=== PATIENT | male | born 1955 | race Caucasian/White ===

== ENCOUNTER 2024-10-25 00:40 | Inpatient (IN) | payer OTHER ==
[~2024-10-25] VITALS: Ht 190.5 cm; Wt 107.9 kg
--- NOTE | 2024-10-25 00:56 | EKG ---
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
[2024-10-25 01:11] LABS: BASOPHILS # (AUTO) 0.05 K/uL (0.00-0.20); BASOPHILS % (AUTO) 0.7 % (0.0-5.0); EOSINOPHILS # (AUTO) 0.15 K/uL (0.00-0.70); EOSINOPHILS % (AUTO) 2.1 % (0.0-8.0); HEMATOCRIT 40.3 % (42-54); IMMATURE GRANULOCYTE ABSOLUTE 0.02 K/uL (0-1); LYMPHOCYTES # (AUTO) 2.5 K/uL (1.0-4.8); LYMPHOCYTES % (AUTO) 35.2 % (21.0-51.0); MEAN CORPUSCULAR HEMOGLOBIN 32.8 pg (27.0-33.0); MEAN CORPUSCULAR HGB CONC 35.2 g/dL (32.0-36.0); MEAN CORPUSCULAR VOLUME 93.1 fL (79-99); MONOCYTES # (AUTO) 0.7 K/uL (0.1-1.0); MONOCYTES % (AUTO) 9.9 % (3.0-13.0); NEUTROPHILS # (AUTO) 3.7 K/uL (1.8-7.7); NEUTROPHILS % (AUTO) 51.8 % (40.0-77.0); PLATELET COUNT (AUTO) 198 K/uL (130-400); RED BLOOD CELL COUNT(AUTO) 4.33 MIL/uL (4.50-6.20); RED CELL DISTRIBUTION WIDTH 13.2 % (11.0-15.5); WHITE BLOOD COUNT (AUTO) 7.1 K/uL (4.8-10.8)
[2024-10-25 01:23] LABS: CREATININE 1.7 mg/dL (0.5-1.3); POTASSIUM 3.9 mmol/L (3.5-5.1)
[2024-10-25 01:24] LABS: INR 0.98 (0.85-1.15)
[2024-10-25 01:25] LABS: PARTIAL THROMBOPLASTIN TIME 26.3 SEC (26.3-35.5)
[2024-10-25 01:25] LABS: APPEARANCE,URINE CLEAR (CLEAR); BILIRUBIN,URINE NEGATIVE (NEGATIVE); COLOR,URINE LIGHT-YELLOW (YELLOW); GLUCOSE, URINE (UA) NEGATIVE (NEGATIVE); KETONES,URINE NEGATIVE (NEGATIVE); LEUKOCYTE ESTERASE ,URINE NEGATIVE Leu/uL (NEGATIVE); NITRATE,URINE NEGATIVE (NEGATIVE); OCCULT BLOOD,URINE NEGATIVE (NEGATIVE); PH,URINE 6.5 (5.0-8.0); PROTEIN,URINE 20 mg/dL (NEGATIVE); UROBILINOGEN,URINE 0.2 mg/dL (0.2-1.0)
[2024-10-25 01:28] LABS: MAGNESIUM 1.8 mg/dL (1.80-2.40)
[2024-10-25 01:29] LABS: ADD UA MICROSCOPIC YES
[2024-10-25 01:30] LABS: SQUAMOUS EPITHELIAL CELL,UR RARE /HPF (0-2)
[2024-10-25 01:30] LABS: B-TYPE NATRIURETIC PEPTIDE 545 pg/mL (0-100)
--- NOTE | 2024-10-25 02:09 | ERN ---
General Chief Complaint: Other Problems Stated Complaint: IRREGULAR HEART BEAT Time Seen by MD: 00:41 Source: patient History of Present Illness Initial Comments Pt is a 69 y/o male coming in to be evaluated for an irregular heartbeat. Patient states he has a hx of afibb and is on several medications for this. He states that he noticed his heart rate in the low 50's and then it would race up into the low 100's. Allergies: Coded Allergies: No Known Allergies (Unverified Allergy, Unknown, 10/25/24) Past Medical History Past Medical History: A-Fib, Hypertension, Other Medical History Other: LEFT KIDNEY REMOVAL DUE TO CA Past Surgical History: Cholecystectomy, Other Surgical History Other: LEFT KIDNEY Results Laboratory and Microbiology Lab and Micro Result Laboratory Tests Test 10/25/24 01:03 10/25/24 01:15 White Blood Count 7.1 K/uL (4.8-10.8) Red Blood Count 4.33 MIL/uL (4.50-6.20) L Hemoglobin 14.2 g/dL (14.0-18.0) Hematocrit 40.3 % (42-54) L Mean Corpuscular Volume 93.1 fL (79-99) Mean Corpuscular Hemoglobin 32.8 pg (27.0-33.0) Mean Corpuscular Hemoglobin Concent 35.2 g/dL (32.0-36.0) Red Cell Distribution Width 13.2 % (11.0-15.5) Platelet Count 198 K/uL (130-400) Mean Platelet Volume 11.0 fL (7.5-10.5) H Immature Granulocyte % (Auto) 0.3 % (0-1) Neutrophils (%) (Auto) 51.8 % (40.0-77.0) Lymphocytes (%) (Auto) 35.2 % (21.0-51.0) Monocytes (%) (Auto) 9.9 % (3.0-13.0) Eosinophils (%) (Auto) 2.1 % (0.0-8.0) Basophils (%) (Auto) 0.7 % (0.0-5.0) Neutrophils # (Auto) 3.7 K/uL (1.8-7.7) Lymphocytes # (Auto) 2.5 K/uL (1.0-4.8) Monocytes # (Auto) 0.7 K/uL (0.1-1.0) Eosinophils # (Auto) 0.15 K/uL (0.00-0.70) Basophils # (Auto) 0.05 K/uL (0.00-0.20) Absolute Immature Granulocyte (auto 0.02 K/uL (0-1) Nucleated Red Blood Cells 0.0 % (0.0-0.19) Prothrombin Time 11.0 SEC (9.6-11.6) Prothromb Time International Ratio 0.98 (0.85-1.15) Activated Partial Thromboplast Time 26.3 SEC (26.3-35.5) Sodium Level 139 mmol/L (136-145) Potassium Level 3.9 mmol/L (3.5-5.1) Chloride Level 104 mmol/L (101-111) Carbon Dioxide Level 28 mmol/L (21-32) Blood Urea Nitrogen 34 mg/dL (7-18) H Creatinine 1.7 mg/dL (0.5-1.3) H Glomerular Filtration Rate Calc 43 mL/min (>90) Random Glucose 109 mg/dL (70-105) H Total Calcium 8.3 mg/dL (8.5-10.1) L Magnesium Level 1.80 mg/dL (1.80-2.40) Total Creatine Kinase 119 U/L (21-232) Troponin I High Sensitivity 8 ng/L (4-75) B-Type Natriuretic Peptide 545 pg/mL (0-100) H Urine Color LIGHT-YELLOW (YELLOW) Urine Appearance CLEAR (CLEAR) Urine pH 6.5 (5.0-8.0) Urine Specific Lulu 1.025 (1.001-1.031) Urine Protein 20 mg/dL (NEGATIVE) H Urine Glucose (UA) NEGATIVE mg/dL (NEGATIVE) Urine Ketones NEGATIVE mg/dL (NEGATIVE) Urine Occult Blood NEGATIVE (NEGATIVE) Urine Nitrate NEGATIVE (NEGATIVE) Urine Bilirubin NEGATIVE mg/dL (NEGATIVE) Urine Urobilinogen 0.2 mg/dL (0.2-1.0) Urine Leukocyte Esterase NEGATIVE Grecia/uL Urine RBC 2-5 /HPF (0-1) H Urine WBC 6-10 /HPF (0-1) H Urine Squamous Epithelial Cells RARE /HPF (0-2) Urine Bacteria None /HPF (None Seen) EKG/XRAY/US/CT/MRI EKG Comment 10/25/2024 time 12:52 a.m. Ventricular rate [address] wave elevation or depression MDM MDM: Differential diagnosis: Irregular heartbeat, history of AFib, bradycardia, Rationale: Tests considered and ordered secondary to shared decision making include: labs, ECG and radiology Previous outside records reviewed: Old ER visits. Risk of complication and/or morbidity or mortality of patient management: None Medications-Per medication reconciliation Need for hospitalization: Patient does meet criteria for hospitalization. Need for emergency major/minor surgery: No There are no social concerns with this patient. Prescription drug management Prescriptions will include symptomatic care Patient's prior external medical records from other ER visits were reviewed by me as indicated. Prior testing and results from previous visits were reviewed. Prior tests were taken into account with medical decision making and resource utilization, independent historian/historians were used to obtain complete medical history. I independently interpreted the test that were performed, results were reviewed by me and considered findings on radiology if ordered. Medical management and examination interpretation discussions were had by me with other qualified healthcare professionals as indicated for the patient's care. Patient is a 69-year-old gentleman coming in to be evaluated for irregular heartbeat. Patient states he has a history of AFib and states he checked his heartbeat today noticed it was low but shortly after that would bouts up into the low 100s. He became concerned because he was on a beta- ricardo for atrial fibrillation decided to come in for further evaluation. Patient will be admitted under the care of hospitalist group for ongoing evaluation and management. ED Course Orders Procedure Category Date Status Time 12 Lead Ekg Tracing- EKG 10/25/24 Complete Technical 00:43 Cbc With Differential LAB 10/25/24 Complete 00:51 Prothrombin Time With LAB 10/25/24 Complete INR 00:51 B-Type Natriuretic LAB 10/25/24 Complete Peptide 00:51 Chest 1vw RAD 10/25/24 Taken 00:51 Lactated Ringers PHA 10/25/24 Complete 1000ml (Lactated 01:00 Magnesium LAB 10/25/24 Complete 00:51 Creatine Kinase, Total LAB 10/25/24 Complete 00:51 Troponin I High LAB 10/25/24 Complete Sensitivity 00:51 Urinalysis Profile LAB 10/25/24 Complete 00:51 Partial LAB 10/25/24 Complete Thromboplastin Time 00:51 Basic Metabolic Panel LAB 10/25/24 Complete 00:51 Culture Urine ERAN 10/25/24 In Process 01:32 Current Medications Medications (Trade) Dose Ordered Sig/Lilly Route PRN Reason Start Time Stop Time Status Last Admin Dose Admin Lactated Ringer's 1,000 ml @ 0 mls/hr ONCE ONCE IV 10/25/24 01:00 10/25/24 01:01 DC 10/25/24 02:10 Vital Signs Date Time Temp Pulse Resp B/P (MAP) Pulse Ox O2 Delivery O2 Flow Rate FiO2 10/25/24 02:14 95 18 103/59 95 Room Air* 0 21 10/25/24 01:18 96 18 90/56 96 Room Air* 0 21 10/25/24 00:41 97.0 91 20 99/68 100 Room Air DX & DISP Disposition: Inpatient Decision to Admit Time: 02:41 Departure Impression: Primary Impression: Irregular heartbeat Additional Impression: History of atrial fibrillation Condition: Stable Referrals: SELF,REFERRAL (PCP) MAO GONZALES MD Oct 25, 2024 02:09
[2024-10-25] MEDS: LACTATED RINGERS 1000ML 1,000 ML IV ONE (02:10)
--- NOTE | 2024-10-25 02:55 | NUR ---
DOROTHY PELLET MILL OPERATOR AND FAMILY MEMBER AT BEDSIDE.
[2024-10-25] MEDS ORDERED: ondanSETRON 4MG INJ IV PRN (03:30)
--- NOTE | 2024-10-25 03:36 | HP ---
[facility] HISTORY AND PHYSICAL Date of Service: Oct 25, 2024 Time of Service: 03:09 PCP: Self-referral HISTORY OF PRESENT ILLNESS: This is a 69 year old male ,a winter [place] from [facility] with past medical history of atrial fibrillation,Kidney cancer,chronic back pain and insomnia who presents to the ED for complaints of irregular heart beat.Patient reports he was laying down in bed and watching TV and his routine is to check his pulse prior to going to bed and he noticed his heart is low in the 50's and then it would race up to the low 100's so he asked his Natalia to listen to his heart and it was irregular,and the last episode of afib he had was 2 years ago he said.Patient denies chest pain,shortness of breath,edema,fever,abdominal pain and dizziness. Natalia was at bedside during my evaluation.Patient states he does not have a die trimmer here.Patient also reports he drinks 3 beers /week and denies cigarette and recreational drug use. Patient states he is taking blood thinner [id number] 30mg po daily,Bisopolol 5 mg po daily and propafenone 300mg po bid. Patient states he is scheduled for a right hip surgery on December .Upon arrival to ER an ECG was done and showed Afib HR112.Latest V/S T97,HR92,BP 104/64 Sat 95% RA. Labs: CBC is unremarkable. BUN 34, creatinine 1.7, GFR 43 glucose 109 total calcium 8.3 troponin eight BNP 545. Chest x-ray result is still pending at this time. 1 L bolus. We will admit patient for further medical management. REVIEW OF SYSTEMS CONSTITUTIONAL: Denies fevers, chills, or night sweats. No unintentional weight loss reported. NEUROLOGICAL: Denies headache, amaurosis fugax, motor weakness, sensory deficit, vertigo/spinning sensation, gait abnormalities, or tremors. ENT: No hearing loss, otalgia, otorrhea, rhinitis, rhinorrhea, hoarseness, or sore throat. CARDIOVASCULAR: Denies any exertional angina, dyspnea on exertion, orthopnea, paroxysmal nocturnal dyspnea, palpitations, life-threatening arrhythmias, claudication. PULMONARY: Denies any shortness of breath, cough, phlegm/sputum, hemoptysis, pleuritic chest pain. SLEEP: Denies morning headaches, daytime somnolence or napping. Denies difficulty falling asleep, staying asleep, waking from sleep. Denies knowledge of snoring. GASTROINTESTINAL: Denies any type of dysphagia to either liquids or solids. Denies nausea, vomiting, pyrosis, early satiety, abdominal pain, diarrhea, constipation, or changes in stool consistency or caliber. Denies coffee-ground emesis, hematemesis, hematochezia, or melanotic stools. GENITOURINARY: Denies frequency, urgency, nocturia, hematuria or incontinence (Storage/Irritative symptoms.) Low urinary stream, straining to void, urinary intermittency or hesitancy, splitting of the voiding stream, terminal dribbling. ENDOCRINOLOGIC: Denies polyuria, polydipsia, polyphagia or heat/cold intolerances. HEMATOLOGIC: Denies thrombophilia/previous clots, or coagulopathy/bleeding disorders. ONCOLOGIC: Denies personal history of malignancy. DERMATOLOGIC: Denies rashes or pruritus. PSYCHIATRIC: Denies any suicidal or homicidal ideation. Denies hallucinations. PAST MEDICAL HISTORY: [ Kidney cancer, insomnia, chronic back pain atrial fibrillation ] PAST SURGICAL HISTORY: [ Left kidney removal cholecystectomy ] PAST SOCIAL HISTORY: [Patient lives with . Patient is a winter [place] from [facility]. Patient denies cigarette and recreational drug use admits to drinking three beers per week ] FAMILY HISTORY: [ Noncontributory ] Coded Allergies: No Known Allergies (Unverified Allergy, Unknown, 10/25/24) PHYSICAL EXAM GENERAL APPEARANCE: The patient is awake, alert, and oriented, in no acute cardiopulmonary distress. NEUROLOGICAL: Cranial nerves II-XII grossly intact. Motor is 5/5 in bilateral upper and lower extremities proximal to distal. No sensory deficits. HEENT: Face is symmetric. Pupils are equal and reactive. Extraocular movements are intact. NECK: Supple. No JVD. No thyromegaly. No submental, submandibular, pre- /postauricular, occipital or supraclavicular lymphadenopathy. CHEST: Normal chest expansion. No Telemetry. LUNGS: Absence of any rales, rhonchi or any wheezing. CARDIOVASCULAR: Irregular. S1 and S2 normal. No appreciable rubs, murmurs or gallops. ABDOMEN: Soft, nontender, and nondistended. There is no rebound, voluntary guarding, or rigidity. : Deferred. No Barriga. EXTREMITIES: Non-edematous and not cyanotic. No clubbing. Good capillary refill. SKIN: No skin breakdown. Vital Sign (Last 24 Hours) 10/25/24 10/25/24 00:41 03:01 Temp 97.0 Pulse 92 Resp 18 B/P (MAP) 104/64 Pulse Ox 95 O2 Delivery Room Air* O2 Flow Rate 0 FiO2 21 LABS: Laboratory: Test 10/25/24 01:15 10/25/24 01:03 Range/Units Urine Color LIGHT-YELLOW YELLOW Urine Appearance CLEAR CLEAR Urine pH 6.5 5.0-8.0 Urine Specific [place]amo 1.025 1.001-1.031 Urine Protein 20 H NEGATIVE mg/dL Urine Glucose (UA) NEGATIVE NEGATIVE mg/dL Urine Ketones NEGATIVE NEGATIVE mg/dL Urine Occult Blood NEGATIVE NEGATIVE Urine Nitrate NEGATIVE NEGATIVE Urine Bilirubin NEGATIVE NEGATIVE mg/dL Urine Urobilinogen 0.2 0.2-1.0 mg/dL Urine Leukocyte Esterase NEGATIVE NEGATIVE Grecia/uL Urine RBC 2-5 H 0-1 /HPF Urine WBC 6-10 H 0-1 /HPF Urine Squamous Epithelial Cells RARE 0-2 /HPF Urine Bacteria None None Seen /HPF White Blood Count 7.1 4.8-10.8 K/uL Red Blood Count 4.33 L 4.50-6.20 MIL/uL Hemoglobin 14.2 14.0-18.0 g/dL Hematocrit 40.3 L 42-54 % Mean Corpuscular Volume 93.1 79-99 fL Mean Corpuscular Hemoglobin 32.8 27.0-33.0 pg Mean Corpuscular Hemoglobin Concent 35.2 32.0-36.0 g/dL Red Cell Distribution Width 13.2 11.0-15.5 % Platelet Count 198 130-400 K/uL Mean Platelet Volume 11.0 H 7.5-10.5 fL Immature Granulocyte % (Auto) 0.3 0-1 % Neutrophils (%) (Auto) 51.8 40.0-77.0 % Lymphocytes (%) (Auto) 35.2 21.0-51.0 % Monocytes (%) (Auto) 9.9 3.0-13.0 % Eosinophils (%) (Auto) 2.1 0.0-8.0 % Basophils (%) (Auto) 0.7 0.0-5.0 % Neutrophils # (Auto) 3.7 1.8-7.7 K/uL Lymphocytes # (Auto) 2.5 1.0-4.8 K/uL Monocytes # (Auto) 0.7 0.1-1.0 K/uL Eosinophils # (Auto) 0.15 0.00-0.70 K/uL Basophils # (Auto) 0.05 0.00-0.20 K/uL Absolute Immature Granulocyte (auto 0.02 0-1 K/uL Nucleated Red Blood Cells 0.0 0.0-0.19 % Prothrombin Time 11.0 9.6-11.6 SEC Prothromb Time International Ratio 0.98 0.85-1.15 Activated Partial Thromboplast Time 26.3 26.3-35.5 SEC Sodium Level 139 136-145 mmol/L Potassium Level 3.9 3.5-5.1 mmol/L Chloride Level 104 101-111 mmol/L Carbon Dioxide Level 28 21-32 mmol/L Blood Urea Nitrogen 34 H 7-18 mg/dL Creatinine 1.7 H 0.5-1.3 mg/dL Glomerular Filtration Rate Calc 43 >90 mL/min Random Glucose 109 H 70-105 mg/dL Total Calcium 8.3 L 8.5-10.1 mg/dL Magnesium Level 1.80 1.80-2.40 mg/dL Total Creatine Kinase 119 21-232 U/L Troponin I High Sensitivity 8 4-75 ng/L B-Type Natriuretic Peptide 545 H 0-100 pg/mL DIAGNOSTICS / RADIOLOGY: [ ] ASSESSMENT: Paroxysmal atrial fibrillation POA Acute kidney injury POA Active alcohol drinker POA Insomnia POA History of chronic back pain POA History of atrial fibrillation POA History of kidney cancer with left kidney removal POA PLAN: We will admit patient to medical telemetry Start on heart healthy diet We will start on NS at 75 mL/hour and evaluate We will obtain echocardiogram We will start on famotidine 20 mg p.o. daily for GI prophylaxis We will reconcile home meds once med list available We will replace electrolytes as needed per protocol We will add p.r.n. medication for pain, fever, nausea and vomiting Counseled on alcohol use cessation We will check labs in a.m. We will seek Cardiology consultation Further recommendations to follow depending upon hospitalization course Case discussed with the attending MD and came up with the above treatment and plan of care ADVANCED CARE PLANNING 1. Which of the following were discussed? Hospice Care - No Therapeutic options - Yes Advance Directives - No Other discussions - 2. Discussed with who? Patient 3. Voluntary nature of this service was explained to the patient? Yes 4. Amount of time spent - ___19____ 5. Reviewed by Physician? (if this service was performed by NPP) Yes Patient seen and examined by me. Agree with note by SENIOR PHARMACY TECHNICIAN SEE ADDITIONAL ORDERS PER CHART DISCUSSED WITH NURSING STAFF KSENIA DE LA CRUZ HYDRAULIC CORRUGATING MACHINE OPERATOR Oct 25, 2024 03:36
[2024-10-25] MEDS ORDERED: [UNRECOGNIZED DRUG - CODE] PO (05:03)
[2024-10-25] MEDS ORDERED: ACET-2079 PO (05:07)
[2024-10-25] MEDS ORDERED: PREG75CA76 PO (05:11)
[2024-10-25] MEDS ORDERED: EDOX30TA2 PO (05:11)
[2024-10-25] MEDS ORDERED: BISO5TAB19 PO (05:11)
[2024-10-25] MEDS ORDERED: ZOPICLONE PO (05:24)
[2024-10-25] MEDS: 0.9%NACL 1000ML 1,000 ML IV SCH (05:35)
[2024-10-25] MEDS: FAMOTIDINE 20MG TAB PO SCH (08:29)
[2024-10-25 08:42] LABS: ALBUMIN 3.3 g/dL (3.5-5.0); BILIRUBIN,TOTAL 0.6 mg/dL (0.2-1.0); CREATININE 1.6 mg/dL (0.5-1.3); MAGNESIUM 1.9 mg/dL (1.80-2.40); POTASSIUM 3.9 mmol/L (3.5-5.1); THYROID STIMULATING HORMONE 4.03 uIU/mL (0.36-3.74); TOTAL PROTEIN, SERUM 6.5 g/dL (6.0-8.3)
--- NOTE | 2024-10-25 09:08 | HMCIMG ---
CHEST 1VW REASON: irregular heart beat COMPARISON: None. FINDINGS: Single view of the chest was obtained. Lungs are clear. Heart size is normal. There is no pulmonary vascular congestion. Mediastinum and bony thorax appear unremarkable. IMPRESSION: 1. Normal single view chest x-ray.
--- NOTE | 2024-10-25 09:57 | NUR ---
DCP: HOME met with with pt and Digna [phone], who are [place] and are staying at the [facility]. Couple in a mobile home, 4 steps with rail to enter. Pt reports he is driving and active, able to complete ADLS on his own. Pt uses a walking stick, because of a bad hip. Pt reports he will return to [place] and have hip surgery in December. No local PCP, brought enough meds for the entire stay, uses [facility] as needed. [place] to [place] at [place]. Addendum: 10/25/24 at 1002 by KISHOR MCLEAN Amended: Links added.
--- NOTE | 2024-10-25 12:07 | CONS ---
[facility] CARD[facility] CONSULTATION NOTE Date Patient Seen: Oct 25, 2024 Time of Visit: 11:44 Reason for Consultation: [Atrial fibrillation ] History of Present Illness: [69-year-old male patient originally from [facility], with a past medical history of atrial fibrillation status post DCCV in 1984, renal cancer status post left nephrectomy he denies any history of radiotherapy or chemotherapy and chronic back pain patient presented to the emergency department today endorsing that he has been noticing irregular heart beats while checking his pulse, onset on rest fluctuating from 50-100s, as per patient his prior episode of atrial fibrillation was two years ago. He denies prior history of Myocardial infarction/CAD/stroke, nonsmoker. Presenting ECG showed AFib with RVR, with a ventricular rate of 112 beats per minute, upon our assessment the patient denies any chest pain, palpitations, dyspnea or any other anginal equivalents. Review of current telemetry with heart rate of 92 beats per minute, with a blood pressure of 105/77 mmhg. Presenting lab results with hemoglobin of 14.2, creatinine 1.7 has downtrended to 1.6, troponin is negative, BNP 545, chest x- ray unremarkable. Patient was started on his home medication, edoxaban, bisoprolol, propafenone. Pending 2D echocardiogram results Cardiology was consulted for atrial fibrillation ] Past Medical History: [Refer to chart ] Past Surgical History: [Refer to HPI] Family History: [ Refer to HPI] Social History: [Refer to HPI ] Habits: [Never] smoker. [Denies] alcohol consumption. [Denies] illicit drug use Review of Systems: Review of 12 systems was negative set per HPI Physical Examination: GENERAL: [No acute distress.] HEAD: [Normal with no signs of head trauma.] EYES: [PERRLA, EOMI, conjunctiva and sclera normal.] ENT: [Hearing grossly intact, normal oropharynx.] NECK: [Supple without JVD. There is no tenderness, lymphadenopathy, or masses. No thyromegaly. Normal carotid upstrokes without bruits.] LUNGS: [Clear breath sounds bilaterally. No wheezes, or rhonchi.] HEART: [Irregularly irregular rhythm. Normal S1 and S2 without mumurs, gallop or rub.] VASC: [Peripheral pulses +2 bilaterally.] ABD: [Bowel sounds normal, soft, nontender, no masses, no organomegaly. No audible bruits.] : [Not examined] LYMPH: [No lymphadenopathy noted.] EXT: [No clubbing, cyanosis or edema.] SKIN: [No rashes or lesions noted.] NEURO: [Awake, alert, and oriented x3. No focal sensory or strength deficits noted.] Vital Signs (last 8hr) Date Time Temp Pulse Resp B/P (MAP) Pulse Ox O2 Delivery O2 Flow Rate FiO2 10/25/24 11:11 97.0 102 16 121/72 97 Room Air* 0 21 10/25/24 07:52 97.0 76 16 99/58 99 Room Air* 0 21 10/25/24 06:26 75 16 112/67 95 Room Air* 0 21 10/25/24 05:00 79 18 97/67 95 Room Air* 0 21 10/25/24 04:05 80 17 96/66 97 Room Air* 0 21 Laboratory: [ ] Hematology Labs: Test 10/25/24 01:03 Range/Units White Blood Count 7.1 4.8-10.8 K/uL Red Blood Count 4.33 L 4.50-6.20 MIL/uL Hemoglobin 14.2 14.0-18.0 g/dL Hematocrit 40.3 L 42-54 % Mean Corpuscular Volume 93.1 79-99 fL Mean Corpuscular Hemoglobin 32.8 27.0-33.0 pg Mean Corpuscular Hemoglobin Concent 35.2 32.0-36.0 g/dL Red Cell Distribution Width 13.2 11.0-15.5 % Platelet Count 198 130-400 K/uL Mean Platelet Volume 11.0 H 7.5-10.5 fL Immature Granulocyte % (Auto) 0.3 0-1 % Neutrophils (%) (Auto) 51.8 40.0-77.0 % Lymphocytes (%) (Auto) 35.2 21.0-51.0 % Monocytes (%) (Auto) 9.9 3.0-13.0 % Eosinophils (%) (Auto) 2.1 0.0-8.0 % Basophils (%) (Auto) 0.7 0.0-5.0 % Neutrophils # (Auto) 3.7 1.8-7.7 K/uL Lymphocytes # (Auto) 2.5 1.0-4.8 K/uL Monocytes # (Auto) 0.7 0.1-1.0 K/uL Eosinophils # (Auto) 0.15 0.00-0.70 K/uL Basophils # (Auto) 0.05 0.00-0.20 K/uL Absolute Immature Granulocyte (auto 0.02 0-1 K/uL Nucleated Red Blood Cells 0.0 0.0-0.19 % Chemistry Labs: Test 10/25/24 07:39 10/25/24 01:03 Range/Units Sodium Level 139 136-145 mmol/L Potassium Level 3.9 3.5-5.1 mmol/L Chloride Level 103 101-111 mmol/L Carbon Dioxide Level 32 21-32 mmol/L Blood Urea Nitrogen 29 H 7-18 mg/dL Creatinine 1.6 H 0.5-1.3 mg/dL Glomerular Filtration Rate Calc 46 >90 mL/min Random Glucose 102 70-105 mg/dL Total Calcium 8.3 L 8.5-10.1 mg/dL Magnesium Level 1.90 1.80-2.40 mg/dL Total Bilirubin 0.6 0.2-1.0 mg/dL Aspartate Amino Transf (AST/SGOT) 17 10-37 U/L Alanine Aminotransferase (ALT/SGPT) 20 12-78 U/L Alkaline Phosphatase 58 50-136 U/L Total Protein 6.5 6.0-8.3 g/dL Albumin 3.3 L 3.5-5.0 g/dL Thyroid Stimulating Hormone (TSH) 4.03 H 0.36-3.74 uIU/mL Total Creatine Kinase 119 21-232 U/L Troponin I High Sensitivity 8 4-75 ng/L B-Type Natriuretic Peptide 545 H 0-100 pg/mL Coagulation Labs: Test 10/25/24 01:03 Range/Units Prothrombin Time 11.0 9.6-11.6 SEC Prothromb Time International Ratio 0.98 0.85-1.15 Activated Partial Thromboplast Time 26.3 26.3-35.5 SEC Diagnostics / Radiology: [Copy/Paste Echos/Imaging Report here] Assessment: Paroxysmal atrial fibrillation History of renal cancer Chronic back pain Acute kidney injury Plan: [ # Paroxysmal atrial fibrillation The patient presented today to the emergency department endorsing he has noticed elevated heart rates at home He states it was checking his pulse his heart rate fluctuates from 50 to 100s, without any other accompanying symptoms Presenting ECG showed atrial fibrillation with RVR in the 120s Chest x-ray was unremarkable Upon our assess with the patient denies any chest pain, palpitations, dyspnea or any other anginal equivalents He denies prior history of Myocardial infarction/CAD/stroke, he is a nonsmoker Presenting creatinine 1.7 the downtrended to 1.6, troponin negative, BNP 545 2D echocardiogram has been ordered and pending results Continue home medications with Edoxaban for CVA PPX , propafenone 300 mg every 12 hours Stop Bisoprolol at this time, and start to Lopressor 50 mg every 12 hours Keep on telemetry, monitor/replace electrolytes as needed ] Thank you for this consult cardiology will continue to follow along, formal recommendations pending 2D echocardiogram results and rate control ATTESTATION BY PHYSICIAN I have seen and examined the patient, reviewed the above documentation, participated in medical decision making, made necessary modifications, and agree with the treatment plan as documented by my mid-level provider above. MD CHERY Seay JAMES R MD Oct 25, 2024 12:07
--- NOTE | 2024-10-25 15:45 | PN ---
[facility] PROGRESS NOTE Date of Service: Oct 25, 2024 Time of Service: 15:37 SUBJECTIVE: This is a 69 year old male ,a winter [place] from [facility] with past medical history of atrial fibrillation,Kidney cancer,chronic back pain and insomnia who presents to the ED for complaints of irregular heart beat.Patient reports he was laying down in bed and watching TV and his routine is to check his pulse prior to going to bed and he noticed his heart is low in the 50's and then it would race up to the low 100's so he asked his Natalia to listen to his heart and it was irregular,and the last episode of afib he had was 2 years ago he said.Irma ent denies chest pain,shortness of breath,edema,fever,abdominal pain and dizziness. 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 Patient states he is taking blood thinner [id number] 30mg po daily,Bisopolol 5 mg po daily and propafenone 300mg po bid. Patient states he is scheduled for a right hip surgery in December .Upon arrival to ER an ECG was done and showed Afib HR112.Latest V/S T97,HR92,BP 104/64 Sat 95% RA. Labs: CBC is unremarkable. BUN 34, creatinine 1.7, GFR 43 glucose 109 total calcium 8.3 troponin eight BNP 545. Chest x-ray result is still pending at this time. 1 L bolus. We will admit patient for further medical management. 10/25/24 patient seen at bedside in the ED 11. His vital signs are blood pressure 121/72, pulse [id number], SpO2 97% on room air, T-max 97. He does not have any complaints, denies chest pain or shortness of breath or palpitations or dizziness. Pending 2D echocardiogram results. [employer] recommended to continue home medications with edoxaban for anticoagulation, propafenone 300 mg b.i.d. and to stop bisoprolol at this time and transition to Lopressor 50 mg b.i.d and to keep on telemetry, monitor/replace electrolytes as needed. REVIEW OF SYSTEMS CONSTITUTIONAL: Denies fevers, chills, or night sweats. No unintentional weight loss reported. NEUROLOGICAL: Denies headache, amaurosis fugax, motor weakness, sensory deficit, vertigo/spinning sensation, gait abnormalities, or tremors. ENT: No hearing loss, otalgia, otorrhea, rhinitis, rhinorrhea, hoarseness, or sore throat. CARDIOVASCULAR: Denies any exertional angina, dyspnea on exertion, orthopnea, paroxysmal nocturnal dyspnea, palpitations, life-threatening arrhythmias, claudication. PULMONARY: Denies any shortness of breath, cough, phlegm/sputum, hemoptysis, pleuritic chest pain. SLEEP: Denies morning headaches, daytime somnolence or napping. Denies difficulty falling asleep, staying asleep, waking from sleep. Denies knowledge of snoring. GASTROINTESTINAL: Denies any type of dysphagia to either liquids or solids. Denies nausea, vomiting, pyrosis, early satiety, abdominal pain, diarrhea, constipation, or changes in stool consistency or caliber. Denies coffee-ground emesis, hematemesis, hematochezia, or melanotic stools. GENITOURINARY: Denies frequency, urgency, nocturia, hematuria or incontinence (Storage/Irritative symptoms.) Low urinary stream, straining to void, urinary intermittency or hesitancy, splitting of the voiding stream, terminal dribbling. ENDOCRINOLOGIC: Denies polyuria, polydipsia, polyphagia or heat/cold intolerances. HEMATOLOGIC: Denies thrombophilia/previous clots, or coagulopathy/bleeding disorders. ONCOLOGIC: Denies personal history of malignancy. DERMATOLOGIC: Denies rashes or pruritus. PSYCHIATRIC: Denies any suicidal or homicidal ideation. Denies hallucinations. PHYSICAL EXAM GENERAL APPEARANCE: The patient is awake, alert, and oriented, in no acute cardiopulmonary distress. NEUROLOGICAL: Cranial nerves II-XII grossly intact. Motor is 5/5 in bilateral upper and lower extremities proximal to distal. No sensory deficits. HEENT: Face is symmetric. Pupils are equal and reactive. Extraocular movements are intact. NECK: Supple. No JVD. No thyromegaly. No submental, submandibular, pre-/postauricular, occipital or supraclavicular lymphadenopathy. CHEST: Normal chest expansion. No Telemetry. LUNGS: Absence of any rales, rhonchi or any wheezing. CARDIOVASCULAR: Irregular. S1 and S2 normal. No appreciable rubs, murmurs or gallops. ABDOMEN: Soft, nontender, and nondistended. There is no rebound, voluntary guarding, or rigidity. : Deferred. No Barriga. EXTREMITIES: Non-edematous and not cyanotic. No clubbing. Good capillary refill. SKIN: No skin breakdown. Vital Signs (last 8hr) Date Time Temp Pulse Resp B/P (MAP) Pulse Ox O2 Delivery O2 Flow Rate FiO2 10/25/24 11:11 97.0 102 16 121/72 97 Room Air* 0 21 10/25/24 07:52 97.0 76 16 99/58 99 Room Air* 0 21 LABS: Laboratory: Test 10/25/24 07:39 10/25/24 01:15 10/25/24 01:03 Range/Units Sodium Level 139 136-145 mmol/L Potassium Level 3.9 3.5-5.1 mmol/L Chloride Level 103 101-111 mmol/L Carbon Dioxide Level 32 21-32 mmol/L Blood Urea Nitrogen 29 H 7-18 mg/dL Creatinine 1.6 H 0.5-1.3 mg/dL Glomerular Filtration Rate Calc 46 >90 mL/min Random Glucose 102 70-105 mg/dL Total Calcium 8.3 L 8.5-10.1 mg/dL Magnesium Level 1.90 1.80-2.40 mg/dL Total Bilirubin 0.6 0.2-1.0 mg/dL Aspartate Amino Transf (AST/SGOT) 17 10-37 U/L Alanine Aminotransferase (ALT/SGPT) 20 12-78 U/L Alkaline Phosphatase 58 50-136 U/L Total Protein 6.5 6.0-8.3 g/dL Albumin 3.3 L 3.5-5.0 g/dL Thyroid Stimulating Hormone (TSH) 4.03 H 0.36-3.74 uIU/mL Urine Color LIGHT-YELLOW YELLOW Urine Appearance CLEAR CLEAR Urine pH 6.5 5.0-8.0 Urine Specific [place] 1.025 1.001-1.031 Urine Protein 20 H NEGATIVE mg/dL Urine Glucose (UA) NEGATIVE NEGATIVE mg/dL Urine Ketones NEGATIVE NEGATIVE mg/dL Urine Occult Blood NEGATIVE NEGATIVE Urine Nitrate NEGATIVE NEGATIVE Urine Bilirubin NEGATIVE NEGATIVE mg/dL Urine Urobilinogen 0.2 0.2-1.0 mg/dL Urine Leukocyte Esterase NEGATIVE NEGATIVE [place]/uL Urine RBC 2-5 H 0-1 /HPF Urine WBC 6-10 H 0-1 /HPF Urine Squamous Epithelial Cells RARE 0-2 /HPF Urine Bacteria None None Seen /HPF White Blood Count 7.1 4.8-10.8 K/uL Red Blood Count 4.33 L 4.50-6.20 MIL/uL Hemoglobin 14.2 14.0-18.0 g/dL Hematocrit 40.3 L 42-54 % Mean Corpuscular Volume 93.1 79-99 fL Mean Corpuscular Hemoglobin 32.8 27.0-33.0 pg Mean Corpuscular Hemoglobin Concent 35.2 32.0-36.0 g/dL Red Cell Distribution Width 13.2 11.0-15.5 % Platelet Count 198 130-400 K/uL Mean Platelet Volume 11.0 H 7.5-10.5 fL Immature Granulocyte % (Auto) 0.3 0-1 % Neutrophils (%) (Auto) 51.8 40.0-77.0 % Lymphocytes (%) (Auto) 35.2 21.0-51.0 % Monocytes (%) (Auto) 9.9 3.0-13.0 % Eosinophils (%) (Auto) 2.1 0.0-8.0 % Basophils (%) (Auto) 0.7 0.0-5.0 % Neutrophils # (Auto) 3.7 1.8-7.7 K/uL Lymphocytes # (Auto) 2.5 1.0-4.8 K/uL Monocytes # (Auto) 0.7 0.1-1.0 K/uL Eosinophils # (Auto) 0.15 0.00-0.70 K/uL Basophils # (Auto) 0.05 0.00-0.20 K/uL Absolute Immature Granulocyte (auto 0.02 0-1 K/uL Nucleated Red Blood Cells 0.0 0.0-0.19 % Prothrombin Time 11.0 9.6-11.6 SEC Prothromb Time International Ratio 0.98 0.85-1.15 Activated Partial Thromboplast Time 26.3 26.3-35.5 SEC Total Creatine Kinase 119 21-232 U/L Troponin I High Sensitivity 8 4-75 ng/L B-Type Natriuretic Peptide 545 H 0-100 pg/mL Current Medications Medications (Trade) Dose Ordered Sig/Lilly Route PRN Reason Start Time Stop Time Status Last Admin Dose Admin Famotidine (Pepcid 20mg Tab) 20 mg DAILY PO 10/25/24 09:00 11/24/24 08:59 10/25/24 08:29 20 MG Home Med (Home Medication) (Bisoprolol Fumarate 1 TAB) DAILY PO 10/26/24 09:00 11/25/24 08:59 Home Med (Home Medication) (Edoxaban Tosylate (Savay... DAILY PO 10/26/24 09:00 11/25/24 08:59 Ondansetron HCl (zoFRAN 4MG INJ) 4 mg Q6H PRN IV NAUSEA/VOMITING 10/25/24 03:30 11/24/24 03:29 Propafenone HCl (Rythmol) 300 mg BID PO 10/25/24 21:00 11/24/24 20:59 Sodium Chloride 1,000 ml @ 75 mls/hr [id number] IV 10/25/24 03:30 11/24/24 03:29 10/25/24 05:35 75 MLS/HR DIAGNOSTICS / RADIOLOGY: PATIENT: IBA MCGINNIS MR#: [id number] : 1955 SEX: M AGE: 69 LOCATION: [facility] ORDER STATUS: ADM IN REPORT#: [id number] SERVICE REASON: irregular heart beat ORDERING PHYSICIAN: MAO GONZALES MD PROCEDURE: CXR1VW - CHEST 1VW CHEST 1VW REASON: irregular heart beat COMPARISON: None. FINDINGS: Single view of the chest was obtained. Lungs are clear. Heart size is normal. There is no pulmonary vascular congestion. Mediastinum and bony thorax appear unremarkable. IMPRESSION: 1. Normal single view chest x-ray. DICTATED BY: JAKUB MAJOR MD DATE: 10/25/24904 ELECTRONICALLY SIGNED BY: JAKUB MAJOR MD DATE: 10/25/24908 ASSESSMENT: Paroxysmal atrial fibrillation POA Acute kidney injury POA Active alcohol drinker POA Insomnia POA History of chronic back pain POA History of atrial fibrillation POA History of kidney cancer with left kidney removal POA PLAN: We will admit patient to medical telemetry Start on heart healthy diet We will start on NS at 75 mL/hour and evaluate Pending echocardiogram results We will start on famotidine 20 mg p.o. daily for GI prophylaxis We will reconcile home meds once med list available We will replace electrolytes as needed per protocol We will add p.r.n. medication for pain, fever, nausea and vomiting Counseled on alcohol use cessation We will check labs in a.m. Further recommendations to follow depending upon hospitalization course ATTESTATION BY PHYSICIAN I have seen and examined the patient. I reviewed the documentation, medical decision making, and treatment plan as noted by the resident provider above. I agree with the findings and plan of care. Nick Sanz MD, NIHITHA MD Oct 25, 2024 15:45
[2024-10-25] MEDS: PROPAFENONE HCL 150 MG TABLET PO SCH (19:51)
[2024-10-25] MEDS: metoPROLOL tartRATE 50 MG TAB PO SCH (19:52)
[2024-10-25 20:45] VITALS: BP 122/74; PULSE 81; RESP 19; TEMP 97.3; O2SAT 98
--- NOTE | 2024-10-25 20:45 | NUR ---
arrival report received from isaura malin. patient alert and oriented times 4. at bedside. No signs of nausea, vomiting, or respiratory distress. plan of care discussed with him and he verbalized understanding. patient is ambulatory. he has no pain tonight. He is ambulatory to the restroom. left home at 22:00. Call light within reach, bed alarm on, 2 side rails up. will continue to monitor patient.
--- NOTE | 2024-10-25 21:04 | HMCSR ---
APPROVED REPORT EXAM: Two-dimensional and M-mode echocardiogram with Doppler and color Doppler. INDICATION ICD: Atrial fibrillation 2D Dimensions RVDd3.7 cmLVEF(%)36.6 (>50%)LVED Vol(simp.)115.0 mL IVSd1.4 (0.7-1.1cm)FS(%)18 %LVES Vol(simp.)44.7 mL LVDd5.1 (3.8-5.6cm)LA (2D)4.3 (1.6-4.0cm)LVEF(%, simp.)61 % PWd1.1 (0.7-1.1cm)Ao Root(2D)3.6 (2.0-3.7cm)LA ESV INDEX (4CH)25.00 mL/m2 IVSs1.9 cmLVOT diam2.7 (1.8-2.4cm)LA ESV INDEX (2CH)20.60 mL/m2 LVDs4.2 (2.5-4.0cm)LA ESV INDEX (BP)21.30 mL/m2 PWs1.1 cm Deformation Strain Apical 413.0 % Apical 28.0 % Apical 315.0 % Global Mtfhps86.0 % M-Mode Dimensions EPSS1.0 cm LA (MM)4.4 (1.6-4.0cm) Ao Root(MM)3.5 (2.0-3.7cm) Aortic Valve AoV VTI0.2 mAo Mean GR3.0 mmHgLVOT VTI0.16 m LITZY (VMAX)4.1 cm2AVA (VTI) 4.1 cm2 Mitral Valve MV E Vmax78.1 cm/sDECEL Lekv517 ms MR Max PG30 mmHgP 1/2 T40 ms MVA (PHT)5.5 cm2 TDI E/E' Medial9.3E/E' Lateral5.7 Medial E' Peak V8.40 cm/sLateral E' Peak V13.60 cm/s Pulmonary Valve PV Vmax1.0 m/s PV Peak GR3.8 mmHg Tricuspid Valve TR Vmax1.9 m/s TR Peak GR14.2 mmHg Left Ventricle Left ventricular cavity size is normal. GLS -12%. There is mild left ventricular wall thickness. LVEF is 60-65%. The LV diastolic function was unable to be assessed due to atrial arrhythmia. Right Ventricle The right ventricle is normal size. The right ventricular systolic function is normal. Atria The left atrium size is normal. The right atrium size is normal. Aortic Valve The aortic valve is normal in structure and function. No aortic regurgitation is present. There is no aortic valvular stenosis. Mitral Valve The mitral valve is normal in structure and function. Mitral regurgitation is trace. There is no mitr al valve stenosis. Tricuspid Valve The tricuspid valve is normal in structure and function. There is trace tricuspid valve regurgitation noted. Pulmonic Valve The pulmonary valve is normal in structure and function. There is no pulmonic valvular regurgitation. Great Vessels The aortic root is normal in size. IVC is not well visualized. Pericardium No pericardial effusion. Other Information Quality : Technically diffcult study due to body habitus Conclusion Left ventricular cavity size is normal. LVEF is 60-65%. The LV diastolic function was unable to be assessed due to atrial arrhythmia. The right ventricle is normal size. The right ventricular systolic function is normal. The left atrium size is normal. The right atrium size is normal. No valvular pathology. No pericardial effusion.
[2024-10-25] MEDS: DiphenhydrAMINE HCL 50 MG/ML VIAL IV ONE (21:39)
[2024-10-26] VITALS: BP 98/65; PULSE 98; RESP 18; TEMP 98.4
[2024-10-26 04:00] VITALS: BP 123/83; PULSE 67; RESP 18; TEMP 98.7
[2024-10-26 05:39] LABS: BASOPHILS # (AUTO) 0.04 K/uL (0.00-0.20); BASOPHILS % (AUTO) 0.7 % (0.0-5.0); EOSINOPHILS # (AUTO) 0.13 K/uL (0.00-0.70); EOSINOPHILS % (AUTO) 2.3 % (0.0-8.0); HEMATOCRIT 40.5 % (42-54); IMMATURE GRANULOCYTE ABSOLUTE 0.01 K/uL (0-1); LYMPHOCYTES # (AUTO) 1.8 K/uL (1.0-4.8); LYMPHOCYTES % (AUTO) 32.5 % (21.0-51.0); MEAN CORPUSCULAR HGB CONC 34.8 g/dL (32.0-36.0); MEAN CORPUSCULAR VOLUME 94.8 fL (79-99); MONOCYTES # (AUTO) 0.5 K/uL (0.1-1.0); MONOCYTES % (AUTO) 9.2 % (3.0-13.0); NEUTROPHILS # (AUTO) 3.1 K/uL (1.8-7.7); NEUTROPHILS % (AUTO) 55.1 % (40.0-77.0); PLATELET COUNT (AUTO) 155 K/uL (130-400); RED BLOOD CELL COUNT(AUTO) 4.27 MIL/uL (4.50-6.20); RED CELL DISTRIBUTION WIDTH 13.1 % (11.0-15.5); WHITE BLOOD COUNT (AUTO) 5.7 K/uL (4.8-10.8)
[2024-10-26 06:09] LABS: CREATININE 1.4 mg/dL (0.5-1.3); MAGNESIUM 1.8 mg/dL (1.80-2.40); POTASSIUM 3.9 mmol/L (3.5-5.1)
[2024-10-26] MEDS: MAGNESIUM 2GM PREMIX 50ML 50 ML IV PRN (06:54)
[2024-10-26 07:59] VITALS: BP 130/80; PULSE 81; RESP 18; TEMP 97.7
[2024-10-26] MEDS: EDOXABAN TOSYLATE PO SCH (08:22)
[2024-10-26 08:45] VITALS: O2SAT 96
[2024-10-26] MEDS ORDERED: BISOPROLOL FUMARATE PO SCH (09:00)
--- NOTE | 2024-10-26 10:02 | PN ---
[facility] PROGRESS NOTE Date Patient Seen: Oct 26, 2024 Time of Visit: 09:51 Problem List: Paroxysmal atrial fibrillation History of renal cancer Chronic back pain Acute kidney injury Interval History: [No acute events overnight. The patient denies any chest pain, palpitations, dyspnea or any other anginal equivalents. Current telemetry shows atrial thorough with a heart rate of 78 beats per minute. The patient underwent 2D echocardiogram that showed EF of 60-65%, diastolic function was unable to be assessed due to atrial arrhythmia, no hemodynamically significant valvular abnormalities noted] Physical Examination: GENERAL: [No acute distress.] HEAD: [Normal with no signs of head trauma.] EYES: [PERRLA, EOMI, conjunctiva and sclera normal.] ENT: [Hearing grossly intact, normal oropharynx.] NECK: [Supple without JVD. There is no tenderness, lymphadenopathy, or masses. No thyromegaly. Normal carotid upstrokes without bruits.] LUNGS: [Clear breath sounds bilaterally. No wheezes, or rhonchi.] HEART: [Irregularly irregular rhythm. Normal S1 and S2 without mumurs, gallop or rub.] VASC: [Peripheral pulses +2 bilaterally.] ABD: [Bowel sounds normal, soft, nontender, no masses, no organomegaly. No audible bruits.] : [Not examined] LYMPH: [No lymphadenopathy noted.] EXT: [No clubbing, cyanosis or edema.] SKIN: [No rashes or lesions noted.] NEURO: [Awake, alert, and oriented x3. No focal sensory or strength deficits noted.] Laboratory: [ ] Hematology Labs: Test 10/26/24 05:01 Range/Units White Blood Count 5.7 4.8-10.8 K/uL Red Blood Count 4.27 L 4.50-6.20 MIL/uL Hemoglobin 14.1 14.0-18.0 g/dL Hematocrit 40.5 L 42-54 % Mean Corpuscular Volume 94.8 79-99 fL Mean Corpuscular Hemoglobin 33.0 27.0-33.0 pg Mean Corpuscular Hemoglobin Concent 34.8 32.0-36.0 g/dL Red Cell Distribution Width 13.1 11.0-15.5 % Platelet Count 155 130-400 K/uL Mean Platelet Volume 10.7 H 7.5-10.5 fL Immature Granulocyte % (Auto) 0.2 0-1 % Neutrophils (%) (Auto) 55.1 40.0-77.0 % Lymphocytes (%) (Auto) 32.5 21.0-51.0 % Monocytes (%) (Auto) 9.2 3.0-13.0 % Eosinophils (%) (Auto) 2.3 0.0-8.0 % Basophils (%) (Auto) 0.7 0.0-5.0 % Neutrophils # (Auto) 3.1 1.8-7.7 K/uL Lymphocytes # (Auto) 1.8 1.0-4.8 K/uL Monocytes # (Auto) 0.5 0.1-1.0 K/uL Eosinophils # (Auto) 0.13 0.00-0.70 K/uL Basophils # (Auto) 0.04 0.00-0.20 K/uL Absolute Immature Granulocyte (auto 0.01 0-1 K/uL Nucleated Red Blood Cells 0.0 0.0-0.19 % Chemistry Labs: Test 10/26/24 05:01 10/25/24 07:39 10/25/24 01:03 Range/Units Sodium Level 143 136-145 mmol/L Potassium Level 3.9 3.5-5.1 mmol/L Chloride Level 110 101-111 mmol/L Carbon Dioxide Level 25 21-32 mmol/L Blood Urea Nitrogen 21 H 7-18 mg/dL Creatinine 1.4 H 0.5-1.3 mg/dL Glomerular Filtration Rate Calc 54 >90 mL/min Random Glucose 95 70-105 mg/dL Total Calcium 8.6 8.5-10.1 mg/dL Magnesium Level 1.80 1.80-2.40 mg/dL Total Bilirubin 0.6 0.2-1.0 mg/dL Aspartate Amino Transf (AST/SGOT) 17 10-37 U/L Alanine Aminotransferase (ALT/SGPT) 20 12-78 U/L Alkaline Phosphatase 58 50-136 U/L Total Protein 6.5 6.0-8.3 g/dL Albumin 3.3 L 3.5-5.0 g/dL Thyroid Stimulating Hormone (TSH) 4.03 H 0.36-3.74 uIU/mL Total Creatine Kinase 119 21-232 U/L Troponin I High Sensitivity 8 4-75 ng/L B-Type Natriuretic Peptide 545 H 0-100 pg/mL Coagulation Labs: Test 10/25/24 01:03 Range/Units Prothrombin Time 11.0 9.6-11.6 SEC Prothromb Time International Ratio 0.98 0.85-1.15 Activated Partial Thromboplast Time 26.3 26.3-35.5 SEC Diagnostics / Radiology: [Copy/Paste Echos/Imaging Report here] Impression and Plan: Paroxysmal atrial fibrillation History of renal cancer Chronic back pain Acute kidney injury Plan: [ # Paroxysmal atrial fibrillation The patient presented today to the emergency department endorsing he has noticed elevated heart rates at home He states it was checking his pulse his heart rate fluctuates from 50 to 100s, without any other accompanying symptoms Presenting ECG showed atrial fibrillation with RVR in the 120s Chest x-ray was unremarkable He denies any chest pain, palpitations, dyspnea or any other anginal equivalents He denies prior history of Myocardial infarction/CAD/stroke, he is a nonsmoker Presenting creatinine 1.7 the downtrended to 1.6, troponin negative, BNP 545 Continue home medications with Edoxaban for CVA PPX , propafenone 300 mg every 12 hours Stop Lopressor 50 mg and transition to Toprol-XL 100 mg daily Keep on telemetry, monitor/replace electrolytes as needed The patient underwent 2D echocardiogram that showed EF of 60-65%, diastolic function was unable to be assessed due to atrial arrhythmia, no hemodynamically significant valvular abnormalities noted] We will schedule for an outpatient event monitor Pt can be DCed from the CV standpoint Thank you for this consult cardiology will sign off at this time the patient will follow up at clinic 1-2 weeks after discharge ATTESTATION BY PHYSICIAN I have seen and examined the patient, reviewed the above documentation, participated in medical decision making, made necessary modifications, and agree with the treatment plan as documented by my mid-level provider above. MD CHERY Seay JAMES R MD Oct 26, 2024 10:02
[2024-10-26] MEDS: metOPROLol sucCINATE 50 MG TAB.SR.24H PO ONE (11:49)
[2024-10-26 12:41] VITALS: BP 120/92; PULSE 99; RESP 22; TEMP 97.3
--- NOTE | 2024-10-26 13:43 | DS ---
Discharge Summary Hospital Course Summary: This is a 69 year old male ,a winter [place] from [facility] with past medical history of atrial fibrillation,Kidney cancer,chronic back pain and insomnia who presents to the ED for complaints of irregular heart beat.Patient reports he was laying down in bed and watching TV and his routine is to check his pulse prior to going to bed and he noticed his heart is low in the 50's and then it would race up to the low 100's so he asked his Natalia to listen to his heart and it was irregular,and the last episode of afib he had was 2 years ago he said.Patient denies chest pain,shortness of breath,edema,fever,abdominal pain and dizziness.Patient also reports he drinks 3 beers /week and denies cigarette and recreational drug use. Patient states he is taking blood thinner Lixiana 30mg po daily,Bisopolol 5 mg po daily and propafenone 300mg po bid. Patient states he is scheduled for a right hip surgery in December .Upon arrival to ER an ECG was done and showed Afib HR112. Cardiology was consulted and recommended to continue home medications with edoxaban for anticoagulation and propafenone 300 mg b.i.d. and to stop bisoprolol and transition to Lopressor 50 mg b.i.d. and to keep on telemetry. 2D echo showed normal left ventricular cavity size and LVEF 60-65. Dr. Hernandez recommended to follow up at the clinic in 1 week for outpatient cardiac event monitor and prescribed Toprol XL 50 mg b.i.d. Patient denies chest pain or shortness of breath or dizziness or sweating. Since the patient does not have any symptoms and his rate is under control, we will discharge him to follow up with Dr. Hernandez in 1 week. Art Objects Supervisor(s): Cardiology - Dr. Sher Hernandez Procedure(s): PATIENT: BIA MCGINNIS MR#: [id number] : 1955 SEX: M AGE: 69 LOCATION: EDHIP ORDER STATUS: ADM IN REPORT#: [id number] SERVICE REASON: irregular heart beat ORDERING PHYSICIAN: MAO GONZALES MD PROCEDURE: CXR1VW - CHEST 1VW CHEST 1VW REASON: irregular heart beat COMPARISON: None. FINDINGS: Single view of the chest was obtained. Lungs are clear. Heart size is normal. There is no pulmonary vascular congestion. Mediastinum and bony thorax appear unremarkable. IMPRESSION: 1. Normal single view chest x-ray. DICTATED BY: JAKUB MAJOR MD DATE: 10/25/24904 ELECTRONICALLY SIGNED BY: JAKUB MAJOR MD DATE: 10/25/24908 PATIENT: BIA MCGINNIS MR#: [id number] : 1955 SEX: M AGE: 69 LOCATION: [facility] ORDER 7 STATUS: ADM IN REPORT#: [id number] SERVICE REASON: atrial fibrillation ORDERING PHYSICIAN: KSENIA DE LA CRUZ PROCEDURE: ECHO [facility] - ECHO 2-D COMPLETE APPROVED REPORT EXAM: Two-dimensional and M-mode echocardiogram with Doppler and color Doppler. INDICATION ICD: Atrial fibrillation 2D Dimensions RVDd 3.7 cm LVEF(%) 36.6 (>50%) LVED Vol(simp.) 115.0 mL IVSd 1.4 (0.7-1.1cm) FS(%) 18 % LVES Vol(simp.) 44.7 mL LVDd 5.1 (3.8-5.6cm) LA (2D) 4.3 (1.6-4.0cm) LVEF(%, simp.) 61 % PWd 1.1 (0.7-1.1cm) Ao Root(2D) 3.6 (2.0-3.7cm) LA ESV INDEX (4CH) 25.00 mL/m2 IVSs 1.9 cm LVOT diam 2.7 (1.8-2.4cm) LA ESV INDEX (2CH) 20.60 mL/m2 LVDs 4.2 (2.5-4.0cm) LA ESV INDEX (BP) 21.30 mL/m2 PWs 1.1 cm Deformation Strain Apical 4 13.0 % Apical 2 8.0 % Apical 3 15.0 % Global Strain 12.0 % M-Mode Dimensions EPSS 1.0 cm LA (MM) 4.4 (1.6-4.0cm) Ao Root(MM) 3.5 (2.0-3.7cm) Aortic Valve AoV VTI 0.2 m Ao Mean GR 3.0 mmHg LVOT VTI 0.16 m LITZY (VMAX) 4.1 cm2 LITZY (VTI) 4.1 cm2 Mitral Valve MV E Vmax 78.1 cm/s DECEL Time 204 ms MR Max PG 30 mmHg P 1/2 T 40 ms MVA (PHT) 5.5 cm2 TDI E/E' Medial 9.3 E/E' Lateral 5.7 Medial E' Peak V 8.40 cm/s Lateral E' Peak V 13.60 cm/s Pulmonary Valve PV Vmax 1.0 m/s PV Peak GR 3.8 mmHg Tricuspid Valve TR Vmax 1.9 m/s TR Peak GR 14.2 mmHg Left Ventricle Left ventricular cavity size is normal. GLS -12%. There is mild left ventricular wall thickness. LVEF is 60-65%. The LV diastolic function was unable to be assessed due to atrial arrhythmia. Right Ventricle The right ventricle is normal size. The right ventricular systolic function is normal. Atria The left atrium size is normal. The right atrium size is normal. Aortic Valve The aortic valve is normal in structure and function. No aortic regurgitation is present. There is no aortic valvular stenosis. Mitral Valve The mitral valve is normal in structure and function. Mitral regurgitation is trace. There is no mitral valve stenosis. Tricuspid Valve The tricuspid valve is normal in structure and function. There is trace tricuspid valve regurgitation noted. Pulmonic Valve The pulmonary valve is normal in structure and function. There is no pulmonic valvular regurgitation. Great Vessels The aortic root is normal in size. IVC is not well visualized. Pericardium No pericardial effusion. Other Information Quality : Technically diffcult study due to body habitus Conclusion Left ventricular cavity size is normal. LVEF is 60-65%. The LV diastolic function was unable to be assessed due to atrial arrhythmia. The right ventricle is normal size. The right ventricular systolic function is normal. The left atrium size is normal. The right atrium size is normal. No valvular pathology. No pericardial effusion. DICTATED BY: KOLBY HERNANDEZ MD DATE: 10/25/24 0923 ELECTRONICALLY SIGNED BY: KOLBY HERNANDEZ MD DATE: 10/25/242103 Assessment/Plan: ASSESSMENT: Paroxysmal atrial fibrillation POA Acute kidney injury POA, resolving Active alcohol drinker POA Insomnia POA History of chronic back pain POA History of atrial fibrillation POA History of kidney cancer with left kidney removal POA Discharge Instructions: ADMISSION DATE : 10/25/24 DISCHARGE DATE: 10/26/24 DISPOSITION : Home CONDITION : Stable BAREBACK RIDER(S) : Cardiology - Dr. Sher Hernandez FOLLOW UP APPOINTMENT(S) : f/u with PCP in one week PROCEDURES: none IMAGING (S) : report attached to summary MICROBIOLOGY : none ACTIVITY : ad renate HOME MEDICATIONS : Continued Home Medications: Active Scripts Metoprolol Succinate (Toprol Xl) 100 Mg Tab.er.24h, 1 TAB PO DAILY for 30 Days, #30 TAB 0 Refills Prov:MARILYN CRESPO MD 10/26/24 Reported Medications [Zopiclone] No Conflict Check, 7.5 MG PO HS PRN for SLEEP 10/25/24 Edoxaban Tosylate (Savaysa) 30 Mg Tablet, 1 TAB PO DAILY for 30 Days, #30 TAB 0 Refills 10/25/24 Pregabalin (Pregabalin) 75 Mg Capsule, 1 CAP PO BID MDD 2 Capsule(s) for 30 Days, #60 CAP 0 Refills 10/25/24 Acetaminophen with Codeine (Acetaminophen-Cod #3 Tablet) 300 Mg-30 Mg Tablet, 1- 2 TAB PO Q4PRN PRN for pain for 7 Days, #28 TAB 0 Refills 10/25/24 Propafenone HCl (Propafenone HCl) 300 Mg Tablet, 1 TAB PO BID for 30 Days, #90 TAB 0 Refills 10/25/24 Discontinued Reported Medications Bisoprolol Fumarate (Bisoprolol Fumarate) 5 Mg Tablet, 1 TAB PO DAILY for 30 Days, #30 TAB 0 Refills 10/25/24 New Medications: Metoprolol Succinate (Toprol Xl) 100 Mg Tab.er.24h 1 TAB PO DAILY for 30 Days, #30 TAB 0 Refills Continued Medications: Acetaminophen with Codeine (Acetaminophen-Cod #3 Tablet) 300 Mg-30 Mg Tablet 1-2 TAB PO Q4PRN PRN for pain for 7 Days, #28 TAB 0 Refills Edoxaban Tosylate (Savaysa) 30 Mg Tablet 1 TAB PO DAILY for 30 Days, #30 TAB 0 Refills Pregabalin (Pregabalin) 75 Mg Capsule 1 CAP PO BID MDD 2 Capsule(s) for 30 Days, #60 CAP 0 Refills Propafenone HCl (Propafenone HCl) 300 Mg Tablet 1 TAB PO BID for 30 Days, #90 TAB 0 Refills [Zopiclone] () 7.5 MG PO HS PRN for SLEEP Discontinued Medications: Bisoprolol Fumarate (Bisoprolol Fumarate) 5 Mg Tablet 1 TAB PO DAILY for 30 Days, #30 TAB 0 Refills Time spent arranging discharge: 1-30 minutes ATTESTATION BY PHYSICIAN I have seen and examined the patient. I reviewed the documentation, medical decision making, and treatment plan as noted by the resident provider above. I agree with the findings and plan of care. Nick Sanz MD, NIHITHA MD Oct 26, 2024 13:43
[2024-10-26] MEDS ORDERED: METO100T7 PO (13:59)
--- NOTE | 2024-10-26 15:00 | NUR ---
DISCHARGE 1430 DISCHARGE ORDERS OBTAINED FOR PATIENT TO BE DISCHARGED HOME. DISCHARGE INSTRUCTIONS AND DOCUMENTATION GIVEN TO PATIENT AND AT BEDSIDE. BOTH VOICED UNDERSTANDING. ATTEMPTED TO SCHEDULE FOLLOW UP APPOINTMENT WITH DR. GOTTLIEB, HOWEVER PER SCHOOL BUS MONITOR AT [facility] STATED TO CALL BACK AT DIFFERENT HOUR SCHEDULERS BUSY HANDLING OTHER CALLS. STATED SHE WILL MAKE FOLLOW UP APPOINTMENT ONCE AT HOME. IV DISCONTINUED, CATHETER INTACT, NO S/S OF INFECTION NOTED TO SITE. PATIENT TOLERATED WELL. BANDS REMOVED. 1500 PATIENT LEFT ACCOMPANIED BY . NO S/S OF DISTRESS NOTED.
[2024-10-27] MEDS ORDERED: metOPROLol sucCINATE 50 MG TAB.SR.24H PO SCH (09:00)
== END 2024-10-26 15:00 | disposition home or self-care (01) | DRG 309 ==
LOC: EDH 00:40 → EDHIP 03:09 → 4BH 19:52
PROVIDERS: ADMIT Internal Medicine; ATTEND Internal Medicine
DX: I48.0 Paroxysmal atrial fibrillation (principal); N17.9 Acute kidney failure, unspecified; G47.00 Insomnia, unspecified; I10 Essential (primary) hypertension; I34.0 Nonrheumatic mitral (valve) insufficiency; G89.29 Other chronic pain; Z85.528 Personal history of other malignant neoplasm of kidney
CPT/HCPCS: 36415; 71045; 80048; 80053; 81001; 82550; 83735; 83880; 84443; 84484; 85025; 85610; 85730; 87086; 93005; 93306; 93356; G0378; J1200; J3475; J7030; J7120; A4600

== ENCOUNTER 2024-11-12 20:52 | Emergency (ER) | payer OTHER ==
[~2024-11-12] VITALS: Ht 190.5 cm; Wt 99.8 kg
[~2024-11-12 20:52] MED LIST: ACET-2079 PO; EDOX30TA2 PO; METO100T7 PO; PREG75CA76 PO; ZOPICLONE PO; [UNRECOGNIZED DRUG - CODE] PO
--- NOTE | 2024-11-12 21:01 | ERN ---
ED Note History of Present Illness Stated Complaint: CHEST PAIN Chief Complaint: Chest Pain Time Seen by MD: 20:57 Dictation: PATIENT IS A 69-YEAR-OLD MALE COMING IN TODAY WITH COMPLAINTS OF FEELING DIZZY LAST NIGHT WHEN HE WAS DANCING AND, HAVING DIFFUSE ANTERIOR CHEST WALL PAIN TENDERNESS HE HAS HAD FOR A LONG TIME. HE STATES HE HAS RECENTLY WAS SEEN AT [facility] [place] AND WAS DIAGNOSED WITH ATRIAL FIBRILLATION PUT ON METOPROLOL AND ELIQUIS. STATES HE HAS AN APPOINTMENT WITH HIM NEXT WEEK. HE STATES HE HAS BEEN TOLD IN THE PAST THAT HE HAS CHEST WALL INFLAMMATION DUE TO HIS FIBROMYALGIA. Allergies: Coded Allergies: No Known Allergies (Unverified Allergy, Unknown, 10/25/24) Home Meds Active Scripts Omeprazole (Omeprazole) 40 Mg Capsule.dr, 1 CAP PO DAILY for 30 Days, #30 CAP 0 Refills Prov:SHERIN GARZA NP 11/13/24 Metoprolol Succinate (Toprol Xl) 100 Mg Tab.er.24h, 1 TAB PO DAILY for 30 Days, #30 TAB 0 Refills Prov:MARILYN CRESPO MD 10/26/24 Reported Medications [Zopiclone] No Conflict Check, 7.5 MG PO HS PRN for SLEEP 10/25/24 Edoxaban Tosylate (Savaysa) 30 Mg Tablet, 1 TAB PO DAILY for 30 Days, #30 TAB 0 Refills 10/25/24 Pregabalin (Pregabalin) 75 Mg Capsule, 1 CAP PO BID MDD 2 Capsule(s) for 30 Days, #60 CAP 0 Refills 10/25/24 Acetaminophen with Codeine (Acetaminophen-Cod #3 Tablet) 300 Mg-30 Mg Tablet, 1- 2 TAB PO Q4PRN PRN for pain for 7 Days, #28 TAB 0 Refills 10/25/24 Propafenone HCl (Propafenone HCl) 300 Mg Tablet, 1 TAB PO BID for 30 Days, #90 TAB 0 Refills 10/25/24 Past Medical History Past Medical History: A-Fib, High Cholesterol, Prostatitis, Other Additional Past Medical Hx: HIATAL HERNIA Surgical History: Cholecystectomy, Other Surgical History Other: LEFT NEPHRECTOMY RN Note Reviewed/Agreed w/PFSH: Yes Review of System Dictation CONSTITUTIONAL: NEGATIVE EXCEPT FOR HPI HEAD/FACE: NEGATIVE EXCEPT FOR HPI EENT: NEGATIVE EXCEPT FOR HPI RESPIRATORY: NEGATIVE EXCEPT FOR HPI ANTERIOR CHEST PAIN GASTROINTESTINAL/ABDOMINAL: NEGATIVE EXCEPT FOR HPI GENITOURINARY: NEGATIVE EXCEPT FOR HPI MUSCULOSKELETAL: NEGATIVE EXCEPT FOR HPI INTEGUMENTARY: NEGATIVE EXCEPT FOR HPI NEUROLOGICAL/PSYCH: NEGATIVE EXCEPT FOR HPI HEMATOLOGIC/LYMPHATIC: NEGATIVE EXCEPT FOR HPI ALL SYSTEMS NEGATIVE, EXCEPT NOTED ABOVE. 13 POINT REVIEW OF SYSTEMS ASSESSED AND ALL NEGATIVE EXCEPT FOR ABOVE. Initial Vital Sign VS Vital Signs Date Time Temp Pulse Resp B/P (MAP) Pulse Ox O2 Delivery O2 Flow Rate FiO2 11/12/24 20:53 98.4 52 18 137/71 95 Room Air 0 11/12/24 22:14 21 Physical Exam Dictation VITAL SIGNS REVIEWED GENERAL APPEARANCE: ALERT, ORIENTED X 3, NO ACUTE DISTRESS, WELL DEVELOPED, NOURISHED. HEAD AND FACE: NON-TRAUMATIC. EYES: PERRL, PINK CONJUNCTIVAS, EYELID NO TRAUMA, ANTERIOR CHAMBER WITH ARCUS SENILIS. EARS: PINNAS INTACT AND NO SIGNS OF TRAUMA OR ERYTHEMA EAR CANALS CLEAR AND NO DISCHARGE TM NO ERYTHEMA NOSE: NO DISCHARGE, NO BLEEDING. OROPHARYNX: MOUTH NORMAL, TONGUE PINK, PHARYNX CLEAR,NO ERYTHEMA, TONSILS NO EXUDATES, NO ABSCESSES NOTED, MUCOUS MEMBRANE MOIST NECK: SUPPLE, NON-TENDER, NO THYROMEGALY, NO MASSES, NO JVD, NO BRUITS BREAST:DEFERRED CHEST:NO TENDERNESS, NO CREPITUS, NO PARADOXICAL MOVEMENT, NO RETRACTIONS LUNGS:CLEAR, WELL-VENTILATED, SYMMETRIC, NO RALES, NO WHEEZING, NO RHONCHI, NO STRIDOR, GOOD BREATH SOUNDS BILATERALLY HEART: REGULAR RATE, REGULAR RHYTHM, NO MURMUR, NO GALLOPS VASCULAR: NO PERIPHERAL EDEMA, ABDOMEN: SOFT, POSITIVE BOWEL SOUNDS, NONDISTENDED, NO GUARDING, NONTENDER, NO REBOUND, NO MASSES NO HEPATOMEGALY, NO SPLENOMEGALY, NO NAIDU'S SIGN, NO HERNIAS. RECTAL: DEFERRED GENITAL: DEFERRED NEUROLOGICAL: NORMAL SPEECH, MOTOR FUNCTION INTACT, SENSORY FUNCTION INTACT MUSCULOSKELETAL: NECK NONTENDER, FULL RANGE OF MOTION, BACK NONTENDER, FULL RANGE OF MOTION, EXTREMITIES: NONTENDER, FULL RANGE OF MOTION SKIN: COLOR PINK, DRY, NO TURGOR, NO RASH, NO LACERATIONS, NO ABRASIONS, NO CONTUSIONS. LYMPHATIC: DEFERRED Results (Laboratory/Radiology) Laboratory/Radiology Laboratory Tests Test 11/12/24 21:22 11/12/24 22:22 11/12/24 23:25 White Blood Count 6.4 K/uL (4.8-10.8) Red Blood Count 4.05 MIL/uL (4.50-6.20) L Hemoglobin 13.2 g/dL (14.0-18.0) L Hematocrit 37.7 % (42-54) L Mean Corpuscular Volume 93.1 fL (79-99) Mean Corpuscular Hemoglobin 32.6 pg (27.0-33.0) Mean Corpuscular Hemoglobin Concent 35.0 g/dL (32.0-36.0) Red Cell Distribution Width 12.9 % (11.0-15.5) Platelet Count 180 K/uL (130-400) Mean Platelet Volume 10.6 fL (7.5-10.5) H Immature Granulocyte % (Auto) 0.2 % (0-1) Neutrophils (%) (Auto) 56.0 % (40.0-77.0) Lymphocytes (%) (Auto) 32.5 % (21.0-51.0) Monocytes (%) (Auto) 8.7 % (3.0-13.0) Eosinophils (%) (Auto) 2.0 % (0.0-8.0) Basophils (%) (Auto) 0.6 % (0.0-5.0) Neutrophils # (Auto) 3.6 K/uL (1.8-7.7) Lymphocytes # (Auto) 2.1 K/uL (1.0-4.8) Monocytes # (Auto) 0.6 K/uL (0.1-1.0) Eosinophils # (Auto) 0.13 K/uL (0.00-0.70) Basophils # (Auto) 0.04 K/uL (0.00-0.20) Absolute Immature Granulocyte (auto 0.01 K/uL (0-1) Nucleated Red Blood Cells 0.0 % (0.0-0.19) Sodium Level 140 mmol/L (136-145) Potassium Level 3.6 mmol/L (3.5-5.1) Chloride Level 104 mmol/L (101-111) Carbon Dioxide Level 27 mmol/L (21-32) Blood Urea Nitrogen 22 mg/dL (7-18) H Creatinine 1.7 mg/dL (0.5-1.3) H Glomerular Filtration Rate Calc 43 mL/min (>90) Random Glucose 115 mg/dL (70-105) H Total Calcium 8.4 mg/dL (8.5-10.1) L Total Creatine Kinase 315 U/L (21-232) #H Troponin I High Sensitivity 6 ng/L (4-75) 5 ng/L (4-75) B-Type Natriuretic Peptide 55 pg/mL (0-100) Urine Color LIGHT-YELLOW (YELLOW) Urine Appearance CLEAR (CLEAR) Urine pH 6.0 (5.0-8.0) Urine Specific [place] 1.018 (1.001-1.031) Urine Protein 10 mg/dL (NEGATIVE) H Urine Glucose (UA) NEGATIVE mg/dL (NEGATIVE) Urine Ketones NEGATIVE mg/dL (NEGATIVE) Urine Occult Blood +- (TRACE) (NEGATIVE) H Urine Nitrate NEGATIVE (NEGATIVE) Urine Bilirubin NEGATIVE mg/dL (NEGATIVE) Urine Urobilinogen 0.2 mg/dL (0.2-1.0) Urine Leukocyte Esterase NEGATIVE [place]/uL Urine RBC 2-5 /HPF (0-1) H Urine WBC None /HPF (0-1) Urine Squamous Epithelial Cells RARE /HPF (0-2) Urine Bacteria None /HPF (None Seen) Exam Type: CHEST 1VW Clinical Information: CHEST PAIN Comparison: None Findings: The lungs are clear of infiltrates. The heart is normal in size. The bony and soft tissue structures of the chest are unremarkable. Impression: Clear lungs. Labs Reviewed?: Yes EKG Comment: INITIAL EKG SINUS RHYTHM/HEART RATE 55/NONSPECIFIC CHANGES LEADS TWO AND THREE. 2302/REPEAT EKG SINUS BRADYCARDIA/HEART RATE 46/AXIS NORMAL/NO ECTOPY. SECOND HEART SCORE IS FIVE ED Course ED Course Orders Procedure Category Date Status Time Vital Signs Per CPOE 11/12/24 Transmitted Routine 20:59 B-Type Natriuretic LAB 11/12/24 Complete Peptide 20:59 Chest 1vw RAD 11/12/24 Resulted 20:59 12 Lead Ekg Tracing- EKG 11/12/24 Complete Technical 20:59 Oxygen By Nc/Pulse Ox CPOE 11/12/24 Transmitted 20:59 Maintain Iv CPOE 11/12/24 Transmitted 20:59 Iv Insertion CPOE 11/12/24 Transmitted 20:59 Cardiac Monitoring CPOE 11/12/24 Transmitted 20:59 Pulse Oximetry With CPOE 11/12/24 Transmitted Vs And Prn 20:59 Cbc With Differential LAB 2/14/25 Complete 20:59 Activity: Br W/Brp CPOE 11/12/24 Transmitted With Assist 20:59 Creatine Kinase, Total LAB 11/12/24 Complete 20:59 Troponin I High LAB 11/12/24 Complete Sensitivity 20:59 Urinalysis Profile LAB 11/12/24 Complete 20:59 Basic Metabolic Panel LAB 11/12/24 Complete 20:59 12 Lead Ekg Tracing- EKG 11/12/24 Logged Technical 22:52 Troponin I High LAB 11/12/24 Complete Sensitivity 22:52 Lidocaine Hcl 2% PHA 11/13/24 Complete Viscous (Lidocaine Hcl 00:30 Mag/Alum/Simeth 30ml PHA 11/13/24 Complete (Maalox Plus 30ml) 00:30 Dicyclomine Hcl PHA 11/13/24 Complete (Bentyl 10mg/5ml 00:30 Dexamethasone 4mg/Ml PHA 11/13/24 Complete 1ml Vial (Dexametha 00:30 Current Medications Medications (Trade) Dose Ordered Sig/Lilly Route PRN Reason Start Time Stop Time Status Last Admin Dose Admin Al Hydroxide/Mg Hydroxide (MAALox PLUS 30ML) 30 ml ONCE ONCE PO 11/13/24 00:30 11/13/24 00:31 DC 11/13/24 00:30 Dexamethasone Sodium Phosphate (dexaMETHasone 4MG/ML 1ML VIAL) 8 mg ONCE ONCE IM 11/13/24 00:30 11/13/24 00:31 DC 11/13/24 00:30 Dicyclomine HCl (Bentyl 10mg/5ml Syrup) 10 mg ONCE ONCE PO 11/13/24 00:30 11/13/24 00:31 DC 11/13/24 00:30 Lidocaine HCl (Lidocaine HCl 2% Viscous) 10 ml ONCE ONCE PO 11/13/24 00:30 11/13/24 00:31 DC 11/13/24 00:30 Vital Signs Date Time Temp Pulse Resp B/P (MAP) Pulse Ox O2 Delivery O2 Flow Rate FiO2 11/13/24 00:56 98.4 65 18 123/67 97 Room Air* 0 21 11/12/24 22:14 98.2 51 17 113/56 97 Room Air* 0 21 11/12/24 20:53 98.4 52 18 137/71 95 Room Air 0 0040/PATIENT STATES PAIN IS IMPROVED AFTER TREATMENT. PATIENT NOTED TO HAVE TENDERNESS TO ANTERIOR CHEST WALL BILATERALLY. ALSO HE STATES HE HAS A HIATAL HERNIA HAS NOT BEEN TAKING HIS OMEPRAZOLE AND HAS BEEN DRINKING DIET COKES AND EATING SPICY FOODS. HEART Score Response (Comments) Value Age: > 65yrs (+2) 2 Risk Factors: 1-2 risk factors (+1) 1 Initial Troponin: Normal limit (0) 0 Total 3 Medical Decision Making MDM MDM: DIFFERENTIAL DIAGNOSIS: ACS/AMI/PNEUMONIA/BRONCHITIS/COSTOCHONDRITIS/HIATAL HERNIA/ELECTROLYTE IMBALANCE/DEHYDRATION RATIONALE: TESTS CONSIDERED AND ORDERED SECONDARY TO SHARED DECISION MAKING INCLUDE: EKG/LABS/RADIOLOGY PREVIOUS OUTSIDE RECORDS REVIEWED: OLD ER VISITS. RISK OF COMPLICATION AND/OR MORBIDITY OR MORTALITY OF PATIENT MANAGEMENT: NONE MEDICATIONS-PER MEDICATION RECONCILIATION NEED FOR HOSPITALIZATION: PATIENT DOES NOT MEET CRITERIA FOR HOSPITALIZATION. NO NEED FOR EMERGENCY MAJOR/MINOR SURGERY: NO THERE ARE NO SOCIAL CONCERNS WITH THIS PATIENT. PRESCRIPTION DRUG MANAGEMENT OMEPRAZOLE, DIETARY GUIDELINES FOR HIATAL HERNIA ALSO INFORMATION ON COSTOCHONDRITIS PRESCRIPTIONS WILL INCLUDE SYMPTOMATIC CARE PATIENT'S PRIOR EXTERNAL MEDICAL RECORDS FROM OTHER ER VISITS WERE REVIEWED BY ME INDICATED. PRIOR TESTING AND RESULTS FROM PREVIOUS VISITS WERE REVIEWED. PRIOR TESTS WERE TAKEN INTO ACCOUNT WITH MEDICAL DECISION MAKING AND RESOURCE UTILIZATION, INDEPENDENT HISTORIAN/HISTORIANS WERE USED TO OBTAIN COMPLETE MEDICAL HISTORY. I INDEPENDENTLY INTERPRETED THE TEST THAT WERE PERFORMED, RESULTS WERE REVIEWED BY ME AND CONSIDERED FINDINGS ON RADIOLOGY IF ORDERED. MEDICAL MANAGEMENT AND EXAMINATION INTERPRETATION DISCUSSIONS WERE HAD BY ME WITH OTHER QUALIFIED HEALTHCARE PROFESSIONALS INDICATED FOR THE PATIENT'S CARE. DX & DISP Disposition: Discharge Departure Impression: Primary Impression: Atypical chest pain Additional Impressions: Costochondritis, acute, Hiatal hernia Condition: Stable Scripts Methylprednisolone (Medrol) 4 Mg Tab.ds.pk 1 TAB PO AD for 6 Days, #21 TAB 0 Refills 6 on day 1 then reduce by one tablet daily until gone Prov: SHERIN GARZA NP 11/13/24 Omeprazole (Omeprazole) 40 Mg Capsule.dr 1 CAP PO DAILY for 30 Days, #30 CAP 0 Refills Prov: SHERIN GARZA LITHOGRAPHIC STRIPPER 11/13/24 Additional Instructions: Follow-up with primary care provider in 1 to 2 days. Take medications as directed here in the emergency room. Okay to continue home medications unless otherwise discussed during your visit in the emergency room today. Return to your nearest emergency room if symptoms worsen or if there is no improvement. Call 911 if you need immediate assistance. Take Tylenol or Motrin [id number] as needed and if no contraindications are present. Increase oral hydration. A wound culture or urine culture was ordered here in the emergency room department please follow-up with primary care provider and advise them to get repeat ports from our facility. If you had any Cesar wrap/splints that were applied here, please do not remove them until you see your primary care or specialty. Take Tylenol as needed for chest pain. Take omeprazole as directed daily. Suggest no spicy foods, no carbonated beverages, no ice tea, no soda pop, no alcohol. Follow up with pot press operator in the next 1-2 days, call for an appointment. Referrals: SELF,REFERRAL (PCP) JOEY FRANK MD Time of Disposition: 00:41 I have reviewed the case, and I agree with, Diagnosis and Plan SHERIN GARZA NP Nov 12, 2024 21:01
--- NOTE | 2024-11-12 21:26 | HMCIMG ---
Exam Type: CHEST 1VW Clinical Information: CHEST PAIN Comparison: None Findings: The lungs are clear of infiltrates. The heart is normal in size. The bony and soft tissue structures of the chest are unremarkable. Impression: Clear lungs.
[2024-11-12 21:33] LABS: BASOPHILS # (AUTO) 0.04 K/uL (0.00-0.20); BASOPHILS % (AUTO) 0.6 % (0.0-5.0); EOSINOPHILS # (AUTO) 0.13 K/uL (0.00-0.70); HEMATOCRIT 37.7 % (42-54); IMMATURE GRANULOCYTE ABSOLUTE 0.01 K/uL (0-1); LYMPHOCYTES # (AUTO) 2.1 K/uL (1.0-4.8); LYMPHOCYTES % (AUTO) 32.5 % (21.0-51.0); MEAN CORPUSCULAR HEMOGLOBIN 32.6 pg (27.0-33.0); MEAN CORPUSCULAR VOLUME 93.1 fL (79-99); MONOCYTES # (AUTO) 0.6 K/uL (0.1-1.0); MONOCYTES % (AUTO) 8.7 % (3.0-13.0); NEUTROPHILS # (AUTO) 3.6 K/uL (1.8-7.7); PLATELET COUNT (AUTO) 180 K/uL (130-400); RED BLOOD CELL COUNT(AUTO) 4.05 MIL/uL (4.50-6.20); RED CELL DISTRIBUTION WIDTH 12.9 % (11.0-15.5); WHITE BLOOD COUNT (AUTO) 6.4 K/uL (4.8-10.8)
[2024-11-12 21:45] LABS: CREATININE 1.7 mg/dL (0.5-1.3); POTASSIUM 3.6 mmol/L (3.5-5.1)
[2024-11-12 22:03] LABS: B-TYPE NATRIURETIC PEPTIDE 55 pg/mL (0-100)
[2024-11-12 22:47] LABS: APPEARANCE,URINE CLEAR (CLEAR); BILIRUBIN,URINE NEGATIVE (NEGATIVE); COLOR,URINE LIGHT-YELLOW (YELLOW); GLUCOSE, URINE (UA) NEGATIVE (NEGATIVE); KETONES,URINE NEGATIVE (NEGATIVE); LEUKOCYTE ESTERASE ,URINE NEGATIVE Leu/uL (NEGATIVE); NITRATE,URINE NEGATIVE (NEGATIVE); PROTEIN,URINE 10 mg/dL (NEGATIVE); UROBILINOGEN,URINE 0.2 mg/dL (0.2-1.0)
[2024-11-12 22:50] LABS: ADD UA MICROSCOPIC YES
[2024-11-12 22:53] LABS: MUCUS,URINE RARE LPF (None Seen); SQUAMOUS EPITHELIAL CELL,UR RARE /HPF (0-2)
--- NOTE | 2024-11-12 23:06 | EKG ---
[facility] Test Date: 2024-11-12 Test Time: 23:02:22 Pat Name: BIA MCGINNIS Department: [facility] Room: Gender: M Department Traffic Freight Router: [facility] : 1955 Requested By: SHERIN GARZA Order Number: [id number] Reading MD: Rajesh Bhagat Measurements Intervals [place] Rate: 46 P: 68 [place]: 185 QRS: 15 QRSD: 114 T: 52 QT: 454 QTc: 398 Interpretive Statements Sinus bradycardia Compared to ECG 10/25/2024 00:52:31 Atrial fibrillation no longer present Electronically Signed On 11-13-2024 14:18:06 TOILET AND LAUNDRY SOAP SUPERVISOR by Rajesh Bhagat Please click the below link to view image of tracing.
[2024-11-13] MEDS: LIDOCAINE HCL 2% VISCOUS 15 ML UDCUP PO ONE (00:30)
[2024-11-13] MEDS: DICYCLOMINE HCL 10 MG/5 ML ML PO ONE (00:30)
[2024-11-13] MEDS: MAG/ALUM/SIMETH 30 ML UDCUP PO ONE (00:30)
[2024-11-13] MEDS: dexaMETHasone SOD PHOSPHATE 4 MG/ML 1ML VIAL IM ONE (00:30)
[2024-11-13] MEDS ORDERED: OMEP40CA21 PO (00:52)
[2024-11-13 00:56] VITALS: BP 123/67; PULSE 65; RESP 18; TEMP 98.5; O2SAT 97
[2024-11-13] MEDS ORDERED: METH4TAB3 PO (01:04)
--- NOTE | 2024-11-13 06:00 | EKG ---
[facility] Test Date: 2024-11-12 Test Time: 20:49:11 Pat Name: BIA MCGINNIS Department: [facility] Room: Gender: M Seed Sales Manager: [id number] : 1955 Requested By: SHERIN GARZA Order Number: [id number] Reading MD: Rajesh Bhagat Measurements Intervals [place] Rate: 55 P: 84 [place]: 194 QRS: 23 QRSD: 124 T: 66 QT: 445 QTc: 425 Interpretive Statements Sinus rhythm Nonspecific intraventricular conduction delay ST elevation, consider inferior injury Compared to ECG 10/25/2024 00:52:31 Intraventricular conduction delay now present ST (T wave) deviation now present Myocardial infarct finding now present Atrial fibrillation no longer present Electronically Signed On 11-13-2024 14:17:32 WOOD PRESERVING PLANT LABORER by Rajesh Bhagat Please click the below link to view image of tracing.
== END 2024-11-13 01:04 | disposition home or self-care (01) ==
LOC: EDH 20:52
DX: M94.0 Chondrocostal junction syndrome [Tietze] (principal); K44.9 Diaphragmatic hernia without obstruction or gangrene; E78.00 Pure hypercholesterolemia, unspecified; Z79.01 Long term (current) use of anticoagulants; Z79.899 Other long term (current) drug therapy; Z90.49 Acquired absence of other specified parts of digestive tract; Z90.5 Acquired absence of kidney
CPT/HCPCS: 99285; 71045; 82550; 84484 ×2; 80048; 83880; 85025; 81001; 36415; 93005 ×2; 96372; J1100